=== PATIENT | male | born 1980 | race Two or more races ===

== ENCOUNTER 2019-05-28 22:58 | Emergency (ER) | payer SELFPAY ==
[~2019-05-28] VITALS: Ht 175.3 cm; Wt 90.7 kg
[2019-05-29 02:20] VITALS: BP 143/98
[2019-05-29] MEDS ORDERED: cefTRIAXone SOD 1,000 MG VL IM ONE (02:45)
[2019-05-29] MEDS ORDERED: TETANUS-DIPTH-ACEL PERTUSSIS 0.5ML SYRG IM ONE (02:45)
[2019-05-29] MEDS ORDERED: LIDOCAINE W/ EPINEPHRINE 1% 20ML VIAL SC ONE (03:00)
[2019-05-29] MEDS ORDERED: LIDOCAINE W/ EPINEPHRINE 2% INJ 20ML VIAL IJ ONE (03:00)
== END 2019-05-29 03:43 | disposition home or self-care (01) ==
LOC: ER 23:03
DX: S81.811A Laceration without foreign body, right lower leg, initial encounter (principal); Z23 Encounter for immunization; W26.8XXA Contact with other sharp object(s), not elsewhere classified, initial encounter; Y93.01 Activity, walking, marching and hiking; Y92.89 Other specified places as the place of occurrence of the external cause; Y99.8 Other external cause status
CPT/HCPCS: 12001; 90471; 90715; 96372; 99283; J0696